=== PATIENT | female | born 1930 | race American Indian/Alaskan Native ===

== ENCOUNTER 2019-05-07 13:09 | Emergency (ER) | payer SELFPAY ==
[2019-05-07 13:14] VITALS: BP 164/59
--- NOTE | 2019-05-07 13:24 | Emergency Department Report ---
Chief Complaint: Extremity Problem,Nontraumatic Stated Complaint: RT SIDE PAIN - HPI History of Present Illness: 88 y/o female comes in for rt sciatic and tension headache. Denies any trauma Has not taking anything for her pay and discomfort. Patient is requesting firocet . - ROS Review of Systems: LUNDBERG rt leg sciatic. - Exam Vital Signs: Vital Signs 05/07/19 13:13 Temperature 98.1 F Pulse Rate 69 Respiratory 18 Rate Blood Pressure 164/59 [Right] O2 Sat by Pulse 98 Oximetry Physical Exam: Ambulating with cane. Axo times 3 NAD. MSE screening note: Focused history and physical exam performed. Due to findings the following was ordered: Patient was offered ibuprofen and declines and left. ED Disposition for MSE Condition: Stable
== END 2019-05-07 14:24 | disposition left against medical advice (07) ==
LOC: ED 13:09
DX: G44.209 Tension-type headache, unspecified, not intractable (principal); M54.31 Sciatica, right side
CPT/HCPCS: 99281